=== PATIENT | male | born 1960 | race Caucasian/White ===

== ENCOUNTER 2020-07-09 12:33 | Emergency (ER) | payer BC, OTHER ==
--- NOTE | 2020-07-09 14:42 | RAD ---
LEFT SHOULDER THREE VIEWS: 07/09/20 There is a wide separation of the left AC joint without much offset of it. No fractures were seen. th e glenohumeral joint was unremarkable. IMPRESSION: Left AC separation. POS: HOME
== END 2020-07-09 13:31 | disposition home or self-care (01) ==
LOC: BURERS 12:33
DX: S43.102A Unspecified dislocation of left acromioclavicular joint, initial encounter (principal); S50.312A Abrasion of left elbow, initial encounter; W01.0XXA Fall on same level from slipping, tripping and stumbling without subsequent striking against object, initial encounter

== ENCOUNTER 2021-04-15 20:43 | Emergency (ER) | payer BC ==
[2021-04-15 21:24] LABS: Hemoglobin 11.3 g/dL (14.0-18.0); Mean Corpuscular HGB CONC 36.3 g/dL (32.0-36.0); Mean Corpuscular Hemoglobin 35.1 pg (27.0-31.0); Mean Corpuscular Volume 96.8 fL (78.0-98.0); Mean Platelet Volume 15.7 fL (7.4-10.4); Platelet Count 71 thou/uL (130-400); Red Blood Cell (RBC) Count 3.23 mill/uL (4.70-6.10); White Blood Cell (WBC) Count 7.6 thou/uL (4.8-10.8)
[2021-04-15] MEDS ORDERED: Magnesium 2 GM/50 ML BAG (IN WATER) ONE (21:28)
[2021-04-15 21:33] LABS: ALT (SGPT) 94 U/L (8-55); AST (SGOT) 64 U/L (5-34); Albumin 3.3 g/dL (3.5-5.0); Alkaline Phosphatase 40 U/L (40-110); Anion Gap 15 mmol/L (10-20); BUN (Urea Nitrogen) 8 mg/dL (8.4-25.7); Calc. Creatinine Clearance 0 mL/min (70-130); Calcium 8.5 mg/dL (7.8-10.44); Carbon Dioxide 34 mmol/L (22-29); Chloride 88 mmol/L (98-107); Globulin 3.4 g/dL (2.4-3.5); Glucose 129 mg/dL (70-105); Protein, Total 6.7 g/dL (6.0-8.3); Sodium 135 mmol/L (136-145)
[2021-04-15 21:39] LABS: Potassium 2.2 mmol/L (3.5-5.1)
[2021-04-15 21:58] LABS: Band 18 % (5-11); Eosinophils 2 % (0-10); Giant Platelets SLIGHT; Hypochromia SLIGHT = 6-15 cells (100X) (0-5/hpf); Lymphocytes 22 % (21-51); MDiff Complete? YES; Monocytes 6 % (0-10); Neutrophil 50 % (42-75); Platelet Morphology Comment Appears Decreased
[2021-04-15] MEDS ORDERED: Potassium Chloride 20 MEQ/100 ML PREMIX BAG ONE (21:59)
[2021-04-15] MEDS ORDERED: Potassium Chloride 20 MEQ TAB ONE ×2 (22:11→23:02)
== END 2021-04-16 00:16 | disposition short-term general hospital (02) ==
LOC: BURERS 20:43
DX: E87.6 Hypokalemia (principal); R94.31 Abnormal electrocardiogram [ECG] [EKG]; Z86.718 Personal history of other venous thrombosis and embolism
CPT/HCPCS: 93005; 96365; 96366; 96368; J3475; J3480